=== PATIENT | female | born 1980 | race Two or more races ===

== ENCOUNTER 2016-05-31 09:08 | Emergency (ER) | payer OTHER ==
[2016-05-31 09:24] VITALS: BP 120/72; PULSE 104; TEMP 98.6; BMI 31.7
--- NOTE | 2016-05-31 09:56 | PDOC ---
History of Present Illness - General History Source: Patient Exam Limitations: No Limitations - History of Present Illness Initial Comments: 05/31/16 12:16 The patient is a 35 year old female, A0, 6 weeks , with no significant past medical history who presents to the ED with lower abdominal pain and vaginal bleeding. Patient reports lower abdominal pain that started this morning. Patient reports vaginal spotting since this morning that is less than her period. Patient notes that her LMP was 6 weeks ago. She denies taking any medication to alleviate the pain. She reports inserting medication from [place] in her vagina last night, but is unsure of the name, states this is an undesired . She denies fever, chills, nausea, vomiting, back pain, diarrhea and constipation. Patient denies dysuria, hematuria, hesitancy and urgency. <Yamini Perez - Last Filed: 05/31/16 12:21> <Ervin Fallon - Last Filed: 05/31/16 13:04> - General Chief Complaint: Vaginal Bleeding Stated Complaint: 6 WKS PREG, VAG BLEEDING Time Seen by Provider: 05/31/16 09:56 Past History <Yamini Perez - Last Filed: 05/31/16 12:21> - Past Medical History Other medical history: DENIES. - Psycho/Social/Smoking Cessation Hx Suicidal Ideation: No Smoking History: Never smoked <Ervin Fallon - Last Filed: 05/31/16 13:04> - Past Medical History Allergies/Adverse Reactions: Allergies Allergy/AdvReac Type Severity Reaction Status Date / Time No Known Allergies Allergy Verified 05/31/16 09:19 Home Medications: Ambulatory Orders NK [No Known Home Medication] 05/31/16 Review of Systems - Review of Systems Able to Perform ROS?: Yes Comments:: 05/31/16 12:17 CONSTITUTIONAL: No reported: Fever, Chills, Diaphoresis, Generalized Weakness, Malaise, Loss of Appetite HEENT: No reported: Rhinorrhea, Nasal Congestion, Throat Pain, Throat Swelling, Difficulty Swallowing, Mouth Swelling, Ear Pain, Eye Pain, Visual Changes CARDIOVASCULAR: No reported: Chest Pain, Syncope, Palpitations, Irregular Heart Rate, Lightheadedness, Peripheral Edema RESPIRATORY: No reported: Cough, Shortness of Breath, SOB with Exertion, Orthopnea, Wheezing , Stridor, Hemoptysis GASTROINTESTINAL: Reported: abdominal pain No reported: Abdominal Distension, Nausea, Vomiting, Diarrhea, Constipation, Melena, Hematochezia GENITOURINARY: Reported: vaginal bleeding No reported: Dysuria, Frequency, Urgency, Hesitancy, Flank Pain, Genital Pain MUSCULOSKELETAL: No reported: Myalgia, Arthralgia, Joint Swelling, Back pain, Neck Pain SKIN: No reported: Rash, Itching, Pallor HEMEATOLOGIC/IMMUNOLOGIC: No reported: Easy Bleeding, Easy Bruising, Lymphadenopathy, Frequent infections ENDOCRINE: No reported: Unexplained Weight Gain, Unexplained Weight Loss, Heat Intolerance , Cold Intolerance NEUROLOGIC: No reported: Headache, Focal Weakness, Paresthesias, Vertigo, Lightheadedness, Unsteady Gait, Seizure, Mental Status Changes, Incontinence PSYCHIATRIC: No reported: Anxiety, Depression <Yamini Perez - Last Filed: 05/31/16 12:21> *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 - Vital Signs Last Vital Signs Temp Pulse Resp BP Pulse Ox 98.6 F 104 H 19 120/72 99 05/31/16 09:19 05/31/16 09:19 05/31/16 09:19 05/31/16 09:19 05/31/16 09:19 - 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 Comments: 05/31/16 12:17 GENERAL: The patient is awake, alert, and fully oriented, Nontoxic - in no acute distress. HEAD: Normocephalic, atraumatic. EYES: extraocular movements intact, sclera anicteric, conjunctiva clear. ENT: Normal voice, Moist mucous membranes. NECK: Normal range of motion, supple LUNGS: Breath sounds equal, clear to auscultation bilaterally. No wheezes, no rhonchi, no rales. HEART: Regular rate and rhythm, without murmur, rub or gallop. ABDOMEN: +mild suprapubic abdominal tenderness. Soft, normoactive bowel sounds. No guarding, no rebound.No CVA tenderness EXTREMITIES: Normal range of motion, no edema. No clubbing or cyanosis. No cords , erythema, or tenderness. NEUROLOGICAL: No facial assymetry, Normal speech, PSYCH: Normal mood, normal affect. SKIN: Warm, Dry, normal turgor, PELVIC: +couple of yellow tablets in vaginal vault. No rashes or lesions, No CMT , cervical os closed, no vaginal bleeding, mild suprapubic tenderness <Yamini Perez - Last Filed: 05/31/16 12:21> - Vital Signs Last Vital Signs Temp Pulse Resp BP Pulse Ox 98.6 F 104 H 19 120/72 99 05/31/16 09:19 05/31/16 09:19 05/31/16 09:19 05/31/16 09:19 05/31/16 09:19 <VasylErvin cooper - Last Filed: 05/31/16 13:04> ED Treatment Course - LABORATORY CBC & Chemistry Diagram: 05/31/16 10:15 05/31/16 10:15 - ADDITIONAL ORDERS Additional order review: Laboratory Results 05/31/16 05/31/16 10:15 10:15 Sodium 138 Potassium 4.2 Chloride 105 Carbon Dioxide 24 Anion Gap 9 BUN 7 Creatinine 0.7 Creat Clearance w eGFR > 60 Random Glucose 89 Calcium 8.6 Total Bilirubin 0.4 AST 14 L ALT 22 Alkaline Phosphatase 70 Total Protein 7.4 Albumin 3.5 Beta HCG, Quant 93489.8 Blood Type O POSITIVE Antibody Screen Negative 05/31/16 10:15 RBC 3.64 MCV 93.8 MCHC 33.7 RDW 14.9 MPV 8.1 Neutrophils % 66.9 Lymphocytes % 23.0 Monocytes % 7.3 Eosinophils % 2.5 Basophils % 0.3 - RADIOLOGY Radiology Studies Ordered: 05/31/16 12:21 EXAM#:US/ <14WKS US with abdominal pain. Obstetrical ultrasound, transabdominal and transvaginal The uterus is gravid measuring 12.2 x 8.3 cm. An intrauterine gestation sac and pole is identified with an average sonographic gestational age of 13 weeks. heart rate is 165 bpm. The gestational sac is extending to the lower uterine segment. Uterine cervix is shortened measuring 2.8 cm in sagittal length without gross funneling. Tiny echogenic density in proximal portion of the cervix suggestive of prior cerclage sutures. Correlate clinically. Right ovary measures 2.3 x 1 cm and appears unremarkable with normal vascular flow. Left ovary was not visualized IMPRESSION: Single live intrauterine with estimated gestational age of 13 weeks. Shortened uterine cervix /incompetent cervix measuring 2.8 cm in sagittal without gross funneling . Lower limits of normal should be 3 cm. Close follow-up is recommended for further evaluation Reported By: Brandy Wynne MD 05/31/[address] Fallon <Yamini Perez - Last Filed: 05/31/16 12:21> - LABORATORY CBC & Chemistry Diagram: 05/31/16 10:15 05/31/16 10:15 <Ervin Fallon - Last Filed: 05/31/16 13:04> Medical Decision Making - Medical Decision Making 05/31/16 11:24 35y F at approx 6 weeks gestation presents with vag bleeding/cramping since this morning. Pt states this is an undesired - she took some kind of med that she got from the DR - (doesnt know name) last night. will ck beta, labs and US will refer to roller shop supervisor for elective termination A portion of this note was documented by scribe services under my direction. I have reviewed the details of the note, within reason, and agree with the documentation with the following case summary and management plan written by me 05/31/16 12:53 The patient's blood work was reviewed it with unremarkable The patient's blood type is O+, rhogam not necessary The patient's ultrasound reveals an IUP with estimated gestation of 13 weeks with a heart rate of 165, there is signs of cervical shortening. Will refer the patient to LEATHER PIECE INSPECTOR. return precautions wree discussed I discussed the physical exam findings, ancillary test results and final diagnoses with the patient. I answered all of the patient's questions. The patient was satisfied with the care received and felt comfortable with the discharge plan and treatment plan. The patient will call their primary care physician within 24 hours to arrange follow-up and will return to the Emergency Department with any new, persistent or worsening symptoms. <Ervin Fallon - Last Filed: 05/31/16 13:04> *DC/Admit/Observation/Transfer - Attestations Scribe Attestion: 05/31/16 12:18 Documentation prepared by SUNITHA Vidal, acting as medical equipment repair technician for Ervin Fallon MD. <Yamini Perez - Last Filed: 05/31/16 12:21> - Discharge Dispostion Admit: No <Ervin Fallon - Last Filed: 05/31/16 13:04> Diagnosis at time of Disposition: Threatened in first trimester - Discharge Dispostion Disposition: HOME Condition at time of disposition: Stable - Referrals Referrals: Ling Winston MD [Staff Physician] - - Patient Instructions Printed Discharge Instructions: DI for Threatened Additional Instructions: Vuelva al departamento de urgencias inmediatamente con CUALQUIER nuevo, persistente o empeorando los sntomas incluyendo el empeoramiento del dolor, el aumento de la cantidad de sangrado, fiebres u otras preocupaciones. Usted DEBE llamar y seguir con el obstetra para mamadou evaluacin adicional de kim sntomas. Los resultados fueron discutidos con usted. Por favor, asegrese de que leonard mdico revise los resultados de leonard evaluacin de emergencia. Return to the emergency department immediately with ANY new, persistent or worsening symptoms including worsening pain, increased amount of bleeding, fevers or other concerns. You MUST call and follow up with teacher adventure education for for further evaluation of your symptoms. Results were discussed with you. Please make sure your doctor reviews the results of your emergency evaluation. Print Language: WOLOF
[2016-05-31 10:27] LABS: BASOPHIL 0.3 % (0-2.0); EOSINOPHIL 2.5 % (0-4.5); MCH 31.6 pg (25.7-33.7); MCHC 33.7 g/dl (32.0-36.0); MEAN CELL VOLUME 93.8 fl (80-96); MEAN PLT VOLUME 8.1 fl (7.5-11.1); NEUTROPHILS 66.9 % (42.8-82.8); PLATELET COUNT 393 K/MM3 (134-434); RDW 14.9 % (11.6-15.6); WHITE BLOOD COUNT 8.2 K/mm3 (4.0-10.0)
[2016-05-31 10:52] LABS: ALBUMIN 3.5 g/dl (3.4-5.0); ANION GAP 9 (8-16); BILIRUBIN,TOTAL 0.4 mg/dL (0.2-1.0); CALCIUM 8.6 mg/dL (8.5-10.1); CO2 24 mmol/L (21-32); CREATININE 0.7 mg/dL (0.55-1.02); GLUCOSE,RANDOM 89 mg/dL (74-106); SGOT/AST 14 U/L (15-37); SGPT/ALT 22 U/L (12-78); TOT PROT 7.4 g/dl (6.4-8.2)
[2016-05-31 10:57] LABS: ALK PHOS 70 U/L (45-117)
[2016-05-31] MEDS ORDERED: ACETAMINOPHEN 325 MG TABLET (FP) PO ONE (12:15)
[2016-05-31] MEDS ORDERED: ACETAMINOPHEN 325 MG TABLET (FP) ONE (12:26)
== END 2016-05-31 13:20 | disposition home or self-care (01) ==
LOC: JER 09:08
DX: O20.0 Threatened abortion (principal); Z3A.13 13 weeks gestation of pregnancy
CPT/HCPCS: 36415; 76801-TC; 80053; 84702; 85025; 86850; 86900; 86901; 99283-25

== ENCOUNTER 2016-11-18 03:45 | Inpatient (IN) | payer OTHER ==
[2016-11-18] MEDS: DEXTROSE 5%-LACTATED RINGERS 1,000 ML IV SCH ×2 (05:00→21:00)
[2016-11-18] MEDS ORDERED: AMPICILLIN 2 GM/100 ML BAG (PRE-DOCKED) IVPB ONE (05:00)
[2016-11-18 05:16] LABS: BASOPHIL 0.8 % (0-2.0); EOSINOPHIL 1.2 % (0-4.5); MCH 31.6 pg (25.7-33.7); MCHC 33.3 g/dl (32.0-36.0); MEAN CELL VOLUME 94.7 fl (80-96); MEAN PLT VOLUME 8.6 fl (7.5-11.1); NEUTROPHILS 70.2 % (42.8-82.8); PLATELET COUNT 346 K/MM3 (134-434); RDW 14.7 % (11.6-15.6); WHITE BLOOD COUNT 9.2 K/mm3 (4.0-10.0)
[2016-11-18 05:30] LABS: INR 1.02 (0.82-1.09); PROTHROMBIN TIME (PATIENT) 11.2 SEC (9.98-11.88)
[2016-11-18 05:32] LABS: ACTIVATED PTT 28.3 SECONDS (26.9-34.4)
[2016-11-18 05:36] LABS: ANION GAP 8 (8-16); CALCIUM 8.3 mg/dL (8.5-10.1); CO2 23 mmol/L (21-32); CREATININE 0.5 mg/dL (0.55-1.02); GLUCOSE,RANDOM 112 mg/dL (74-106)
[2016-11-18 05:49] VITALS: BMI 33.4
[2016-11-18 06:11] LABS: HIV 1 & 2 AB NEGATIVE; HIV 1 AGp24 NEGATIVE
[2016-11-18] MEDS: AMPICILLIN (PRE-DOCKED) 1 GM/100 ML BAG IVPB SCH ×4 (09:00→21:00)
--- NOTE | 2016-11-18 09:19 | PN ---
Progress Note (short form) - Note Progress Note: cx closed, non effaced , vx -3 mi, fhr cat 1. no contraction, cervidil rba discussed ,via chair inspector and leveler, cervidil inserted 910 am
[2016-11-18] MEDS ORDERED: DINOPROSTONE 10 MG VAGINAL SUPPOSITORY VG ONE (09:29)
--- NOTE | 2016-11-18 11:32 | HP ---
Past Medical History - Primary Care Physician PCP:: Héctor Domínguez - Admission Chief Complaint: 37 week, PROM, ama History of Present Illness: 36 yo f edc by sono 12/10/16 with SRPOM since 3 am , no pain, no bleeding , no fever, clear fluid, cx clp, vx -3 mr, serafin positve, fhr cat 1 no contraction History Source: Patient Limitations to Obtaining History: Language Barrier - Past Medical History ...: 4 ...Para: 3 ...Term: 3 ...: 0 ...Spon : 0 ...Induced : 0 ...Multiple Gestation: 0 ...LMP: 03/04/16 ... Weeks Gestation by Dates: 37.0 ...EDC by Dates: 12/09/16 ...EDC by Sono: 12/10/16 Additional OB History: 3 , no complication - Past Surgical History Hx Myomectomy: No Hx Transabdominal Cerclage: No Additional Surgical History: exploratory lap as child 3m old - Smoking History Smoking history: Never smoked Have you smoked in the past 12 months: No - Alcohol/Substance Use Hx Alcohol Use: No - Social History History of Recent Travel: No Home Medications - Allergies Allergies/Adverse Reactions: Allergies Allergy/AdvReac Type Severity Reaction Status Date / Time No Known Allergies Allergy Verified 11/18/16 04:58 - Home Medications Home Medications: Ambulatory Orders Vitamins (Sjr) - 1 tab PO DAILY 10/07/16 Review of Systems - Review of Systems Constitutional: reports: No Symptoms Eyes: reports: No Symptoms HENT: reports: No Symptoms Neck: reports: No Symptoms Cardiovascular: reports: No Symptoms Respiratory: reports: No Symptoms Gastrointestinal: reports: No Symptoms Genitourinary: reports: No Symptoms Breasts: reports: No Symptoms Reported Musculoskeletal: reports: No Symptoms Integumentary: reports: No Symptoms Neurological: reports: No Symptoms Endocrine: reports: No Symptoms Hematology/Lymphatic: reports: No Symptoms Psychiatric: reports: No Symptoms 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 - Maternity Vital Signs: Vital Signs Temperature 97.9 F 11/18/16 10:00 Pulse Rate 77 11/18/16 11:00 Respiratory Rate 20 11/18/16 11:00 Blood Pressure 98/55 11/18/16 11:00 O2 Sat by Pulse Oximetry (%) Constitutional: Yes: Well Nourished, No Distress, Calm Eyes: Yes: WNL, Conjunctiva Clear, EOM Intact HENT: Yes: WNL, Atraumatic, Normocephalic Neck: Yes: WNL, Supple, Trachea Midline Cardiovascular: Yes: WNL, Regular Rate and Rhythm Breast(s): Yes: WNL - Abdominal Exam/OB Fundal Height: 36 Number of Fetuses: Single Presentation: Vertex Contractions: No Intensity: Unaware Monitor Mode: External Heart Rate Location: [facility] Category: I Accelerations: Non-Uniform Decelerations: None - Vaginal Exam/OB Vaginal Bleediing: No Speculum Exam: Yes Dilatation (cm): closed Effacement (%): 0 Amniotic Membrane Status: Ruptured Nitrazine Test: Positive Amniotic Fluid: Yes: Clear Presentation: Vertex/Position Station: -3 - 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 Musculoskeletal: Yes: WNL Extremities: Yes: WNL Edema: Yes Edema: LLE: Trace, RLE: Trace Deep Tendon Reflex Grade: Normal +2 Psychiatric: Yes: WNL - Labs Lab Results: CBC, BMP 11/18/16 05:05 11/18/16 05:05 Hemorrhage Risk Assessment - Risk Factors Risk Score: 1 Risk Level: Medium Risk Problem List - Problems (1) with 37 or more completed weeks gestation Code(s): PFO9637 - (2) PROM (premature rupture of membranes) Code(s): O42.90 - LONG ROM, 7TH0 BETW RUPT & ONST LABR, UNSP WEEKS OF GEST Qualifiers: PROM onset of labor timing: onset of labor within 24 hours of rupture PROM gestational age: -third trimester Qualified Code(s): O42.013 - premature rupture of membranes, onset of labor within 24 hours of rupture, third trimester Assessment/Plan plan cervidil rba discussed via reset merchandiser, agreed ,ulternative, expectant management discussed iv amp, GBS unknown
--- NOTE | 2016-11-18 19:39 | PN ---
Progress Note (short form) - Note Progress Note: cervidil fell out at 7 pm, cx 2 cm 70 vx -2 mr , fhr cat 1, irregular contraction . advised pitocin , rba explained Problem List - Problems (1) with 37 or more completed weeks gestation Code(s): KRS9691 - (2) PROM (premature rupture of membranes) Code(s): O42.90 - LONG ROM, 7TH0 BETW RUPT & ONST LABR, UNSP WEEKS OF GEST Qualifiers: PROM onset of labor timing: onset of labor within 24 hours of rupture PROM gestational age: -third trimester Qualified Code(s): O42.013 - premature rupture of membranes, onset of labor within 24 hours of rupture, third trimester
[2016-11-18] MEDS: OXYTOCIN 15 UNITS/ LR 250 ML 250 ML IVPB SCH (19:45)
[2016-11-18] MEDS ORDERED: PROMETHAZINE HCL 25 MG/1 ML VIAL IVPUSH ONE (19:47)
[2016-11-18] MEDS ORDERED: BUTORPHANOL TARTRATE 1 MG/ML VIAL IVPUSH PRN (19:47)
[2016-11-19] MEDS: AMPICILLIN (PRE-DOCKED) 1 GM/100 ML BAG IVPB SCH ×2 (01:00→08:29)
[2016-11-19] MEDS ORDERED: BENZOCAINE 20% 57 GM BOTTLE TP PRN (03:34)
[2016-11-19] MEDS ORDERED: METHYLERGONOVINE MALEATE 0.2 MG/1 ML AMP IM PRN (03:34)
[2016-11-19] MEDS ORDERED: ACETAMINOPHEN 325 MG TABLET (FP) PO PRN (03:34)
[2016-11-19] MEDS ORDERED: IBUPROFEN 600 MG TABLET (FP) PO PRN (03:34)
[2016-11-19] MEDS ORDERED: BISACODYL 10 MG SUPP.RECT RC PRN (03:34)
[2016-11-19] MEDS ORDERED: WITCH HAZEL 50% (TUCKS) 40 PAD/JAR PAD TP PRN (03:34)
[2016-11-19] MEDS ORDERED: oxyCODONE HCL 5 MG TABLET PO PRN (03:34)
[2016-11-19] MEDS ORDERED: BENZOCAINE 28 GM HEMORRHOIDAL OINTMENT TP PRN (03:34)
[2016-11-19] MEDS ORDERED: D5W-LR W/ 20 UNITS OXYTOCIN 1,000 ML IV SCH (03:45)
[2016-11-19 03:55] LABS: ARTERIAL BLD GAS O2 SATURATION 36.4 % (90-98.9); ARTERIAL BLOOD GAS BASE EXCESS -0.2 meq/l (-2-2); ARTERIAL BLOOD GAS HCO3 27.1 meq/L (22-26); ARTERIAL BLOOD GAS pH 7.29 (7.35-7.45)
[2016-11-19 03:56] LABS: ARTERIAL BLOOD GAS PO2 20.3 mmHg (80-100)
[2016-11-19 03:59] LABS: VENOUS BLOOD GAS HCO3 24.9 meq/L (19-25); VENOUS PH 7.38 (7.32-7.42)
[2016-11-19] MEDS: FERROUS SO4 325 MG TABLET (FP) PO SCH ×2 (09:49→22:04)
[2016-11-19] MEDS: PRENATAL VITAMINS W/ FOLIC ACID TABLET (FP) PO SCH (09:49)
[2016-11-19] MEDS ORDERED: DIPHTH,PERTUSS(ACELL),TET 0.5 ML DISP.SYRIN IM ONE (10:00)
[2016-11-20 08:05] LABS: BASOPHIL 0.5 % (0-2.0); MCH 31.7 pg (25.7-33.7); MCHC 33.3 g/dl (32.0-36.0); MEAN CELL VOLUME 95.3 fl (80-96); MEAN PLT VOLUME 8.6 fl (7.5-11.1); PLATELET COUNT 330 K/MM3 (134-434); RDW 14.5 % (11.6-15.6); WHITE BLOOD COUNT 10.7 K/mm3 (4.0-10.0)
--- NOTE | 2016-11-20 08:49 | PN ---
Post Progress Note - Subjective Subjective: 36 yo Para 4, status post normal vaginal delivery, seen and evaluated. Doing well, no complaints. Post Day: 1 Type of Delivery: Vital Signs: Vital Signs Temperature 97.7 F 11/20/16 08:37 Pulse Rate 59 L 11/20/16 08:37 Respiratory Rate 20 11/20/16 08:37 Blood Pressure 129/80 11/20/16 08:37 O2 Sat by Pulse Oximetry (%) 100 11/19/16 04:25 Breast Exam: Yes: Soft Uterus: Yes: Fundus Firm Abdomen/GI: Yes: Abdomen soft, Tolerating PO Lochia: Yes: Rubra Lochia, amount: Moderate Extremities: Yes: Calves non-tender Activity: Ambulating - Labs Labs: CBC WBC 10.7 K/mm3 (4.0-10.0) H 11/20/16 06:00 RBC 3.36 M/mm3 (3.60-5.2) L 11/20/16 06:00 Hgb 10.7 GM/dL (10.7-15.3) D 11/20/16 06:00 Hct 32.0 % (32.4-45.2) L 11/20/16 06:00 MCV 95.3 fl (80-96) 11/20/16 06:00 MCH 31.7 pg (25.7-33.7) 11/20/16 06:00 MCHC 33.3 g/dl (32.0-36.0) 11/20/16 06:00 RDW 14.5 % (11.6-15.6) 11/20/16 06:00 Plt Count 330 K/MM3 (134-434) 11/20/16 06:00 MPV 8.6 fl (7.5-11.1) 11/20/16 06:00 Neutrophils % 66.0 % (42.8-82.8) 11/20/16 06:00 Lymphocytes % 24.2 % (8-40) 11/20/16 06:00 Monocytes % 7.3 % (3.8-10.2) 11/20/16 06:00 Eosinophils % 2.0 % (0-4.5) 11/20/16 06:00 Basophils % 0.5 % (0-2.0) 11/20/16 06:00 Problem List - Problems (1) Status post normal vaginal delivery Code(s): MAH9303 - Assessment/Plan Status post normal vaginal delivery Stable Continue routine care
[2016-11-20] MEDS: PRENATAL VITAMINS W/ FOLIC ACID TABLET (FP) PO SCH (09:08)
[2016-11-20] MEDS: FERROUS SO4 325 MG TABLET (FP) PO SCH ×2 (09:08→21:59)
[2016-11-20] MEDS: OXYTOCIN 15 UNITS/ LR 250 ML 250 ML IVPB SCH (21:56)
[2016-11-20] MEDS ORDERED: SENNOSIDES/DOCUSATE COMBO (SENNA PLUS) TABLET (UD) PO PRN (22:00)
[2016-11-21] MEDS: FERROUS SO4 325 MG TABLET (FP) PO SCH (09:07)
[2016-11-21] MEDS: PRENATAL VITAMINS W/ FOLIC ACID TABLET (FP) PO SCH (09:07)
[2016-11-21 09:28] VITALS: BP 117/61; PULSE 60; TEMP 98.6
--- NOTE | 2016-11-21 22:54 | DS ---
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-POLICE SHIFT COMMANDER Vital Signs: Vital Signs Temperature 98.6 F 11/21/16 09:26 Pulse Rate 60 11/21/16 09:26 Respiratory Rate 20 11/21/16 09:26 Blood Pressure 117/61 11/21/16 09:26 O2 Sat by Pulse Oximetry (%) 100 11/19/16 04:25 Constitutional: Yes: Well Nourished, No Distress, Calm Eyes: Yes: WNL, Conjunctiva Clear, EOM Intact HENT: Yes: WNL, Atraumatic, Normocephalic Neck: Yes: WNL, Supple, Trachea Midline Cardiovascular: Yes: WNL, Regular Rate and Rhythm Respiratory: Yes: WNL, Regular, CTA Bilaterally Gastrointestinal: Yes: WNL ...Rectal Exam: Yes: WNL Renal/: Yes: WNL ....Post : Yes: Uterus firm, Uterus non-tender, Slight lochia rubra Breast(s): Yes: WNL Musculoskeletal: Yes: WNL Extremities: Yes: WNL Edema: No Integumentary: Yes: WNL Neurological: Yes: WNL, Alert, Oriented ...Motor Strength: WNL Psychiatric: Yes: WNL, Alert, Oriented Labs: CBC, BMP 11/20/16 06:00 11/18/16 05:05 Delivery - Delivery Vaginal Delivery: Spontaneous (no complication) Type of Anesthesia: None Episiotomy/Laceration: None EBL (cc): 300 Delivery, Single - Stages of Labor Date 1st Stage Initiatied: 11/18/16 Time 1st Stage Initiated: 21:00 Date 2nd Stage Initiated: 11/19/16 Time 2nd Stage Initiated: 03:20 Date of Delivery: 11/19/16 Time of Delivery: 03:27 Time Placenta Delivered: 03:35 Placenta: Yes: Spontaneous (no complication) - Condition of 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
== END 2016-11-21 12:30 | disposition home or self-care (01) | DRG 560 ==
LOC: JLDR 03:45 → J3W 11-19 04:49
PROVIDERS: ADMIT Obstetrics & Gynecology; ATTEND Obstetrics & Gynecology
PROC: 3E0P7GC Introduction of Other Therapeutic Substance into Female Reproductive, Via Natural or Artificial Opening (ICD-10-PCS; 2016-11-18)
PROC: 10E0XZZ Delivery of Products of Conception, External Approach (ICD-10-PCS; principal; 2016-11-19)
DX: O42.92 Full-term premature rupture of membranes, unspecified as to length of time between rupture and onset of labor (principal); Z3A.37 37 weeks gestation of pregnancy; Z37.0 Single live birth
CPT/HCPCS: 36415; 36600; 59409; 80048; 82803; 85025; 85610; 85730; 86593; 86850; 86900; 86901; 87389; 90715

== ENCOUNTER 2018-06-07 18:27 | Emergency (ER) | payer OTHER ==
[2018-06-07 18:38] VITALS: BP 147/83; PULSE 88; BMI 27.4
[2018-06-07] MEDS ORDERED: ACETAMINOPHEN 325 MG TABLET (FP) PO ONE (18:54)
[2018-06-07] MEDS ORDERED: ACETAMINOPHEN 325 MG TABLET (FP) ONE (19:00)
--- NOTE | 2018-06-07 19:17 | PDOC ---
History of Present Illness - General Chief Complaint: Eye Problem Stated Complaint: R EYE PAIN Time Seen by Provider: 06/07/18 18:42 - History of Present Illness Initial Comments: The pt is a 37F w/ no reported PMH who presents for evaluation s/p fall in the shower and injury to her R eye at approximately 1600 today. She reports blurry vision in the R eye and swelling. Denies LOC. She has not taken anything for the pain. Denies any PMH, meds, or allergies She denies recent illness, fevers/chill, chest pain, SOB, abdominal pain, N/V/C/ D, or changes in sensation/strength 06/07/18 19:14 Past History - Past Medical History Allergies/Adverse Reactions: Allergies Allergy/AdvReac Type Severity Reaction Status Date / Time No Known Allergies Allergy Verified 06/07/18 18:34 Home Medications: Ambulatory Orders NK [No Known Home Medication] 06/07/18 Asthma: No Cancer: No Cardiac Disorders: No COPD: No Diabetes: No HTN: No Seizures: No Thyroid Disease: No - Suicide/Smoking/Psychosocial Hx Smoking History: Never smoked Have you smoked in the past 12 months: No Hx Alcohol Use: No Drug/Substance Use Hx: No Hx Substance Use Treatment: No Review of Systems - Review of Systems Able to Perform ROS?: Yes Comments:: GENERAL/CONSTITUTIONAL: No fever or chills. No weakness HEAD, EYES, EARS, NOSE AND THROAT: No ear pain or discharge. No sore throat CARDIOVASCULAR: No chest pain or shortness of breath RESPIRATORY: Denies cough, hemoptysis GASTROINTESTINAL: No nausea, vomiting, diarrhea or constipation GENITOURINARY: No dysuria, frequency, or change in urination MUSCULOSKELETAL: No joint or muscle swelling or pain. No neck or back pain SKIN: No rash NEUROLOGIC: No headache, vertigo, loss of consciousness, or change in strength/ sensation ENDOCRINE: No increased thirst. No abnormal weight change HEMATOLOGIC/LYMPHATIC: No anemia, easy bleeding, or history of blood clots ALLERGIC/IMMUNOLOGIC: No hives or skin allergy 06/07/18 19:32 *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 - Vital Signs Last Vital Signs Temp Pulse Resp BP Pulse Ox 88 22 H 147/83 99 06/07/18 18:35 06/07/18 18:35 06/07/18 18:35 06/07/18 18:35 - 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 Comments: GENERAL: Awake, alert, and fully oriented, in no acute distress HEAD: No signs of trauma, normocephalic, atraumatic EYES: R eye periorbial swelling, ecchymosis, conjuntival injection; OD 20/50; OS 20/30; No bony crepitus palpated ENT: Hearing grossly normal, nares patent, oropharynx clear without exudates. Moist mucosa LUNGS: No distress, speaks full sentences, clear to auscultation bilaterally HEART: Regular rate and rhythm, normal S1 and S2, no murmurs appreciated, peripheral pulses normal and equal bilaterally ABDOMEN: Soft, nontender, normoactive bowel sounds. No guarding, no rebound. No masses EXTREMITIES : Normal inspection, Normal range of motion, no edema. No clubbing or cyanosis NEUROLOGICAL: Cranial nerves II through XII grossly intact. Normal speech, normal gait, no focal sensorimotor deficits SKIN: R periorbital edema/ecchymosis; otherwise warm/dry 06/07/18 19:33 Moderate Sedation - Procedure Monitoring Vital Signs: Procedure Monitoring Vital Signs Temperature Pulse Rate 88 06/07/18 18:35 Respiratory Rate 22 H 06/07/18 18:35 Blood Pressure 147/83 06/07/18 18:35 O2 Sat by Pulse Oximetry (%) 99 06/07/18 18:35 ED Treatment Course - ADDITIONAL ORDERS Additional order review: Laboratory Results 06/07/18 19:00 Urine HCG, Qual Negative - RADIOLOGY Radiology Studies Ordered: Category Date Time Status FACIAL BONES CT W/O CONTRAST [CT] Stat CT Scan 06/07/18 18:[address] WITHOUT CONTRAST [CT] Stat CT Scan 06/07/18 18:47 Ordered - Medications Given in the ED: ED Medications Discontinued Medications Generic Name Dose Route Start Last Admin Trade Name Freq PRN Reason Stop Dose Admin Acetaminophen 975 mg 06/07/18 18:54 06/07/18 18:59 Tylenol - PO 06/07/18 18:55 975 mg ONCE ONE Administration Medical Decision Making - Medical Decision Making The patient is a 37F w/ no reported history who presents for evaluation of R eye pain s/p fall in shower at [address] head and facial bones Upreg 06/07/18 19:17 Upreg neg 06/07/18 19:17 No corneal abrasion seen w/ Fluorescein stain 06/07/18 20:14 CT sig for preorbital soft tissue swelling w/o evidence of swelling or globe rupture Plan for D/C w/ ophtho and PCP f/u Discharge instructions and return precautions given Patient in agreement and verbalized understanding Dispo: home 06/07/18 20:17 *DC/Admit/Observation/Transfer Diagnosis at time of Disposition: Right eye trauma Qualifiers: Encounter type: initial encounter Qualified Code(s): S05.91XA - Unspecified injury of right eye and orbit, initial encounter - Discharge Dispostion Disposition: HOME Condition at time of disposition: Stable Decision to Admit order: No - Referrals Referrals: Milton Padron MD [Staff Physician] - - Patient Instructions Printed Discharge Instructions: DI for Eye Contusion Additional Instructions: You were seen in the Emergency Department tonight for injury to your right eye. You CT scan was negative for bone fracture. You do not have a corneal abrasion. Read the handout provided at discharge follow up with ophthalmology and your primary care provider. Return to the Emergency Department if you develop worsening vision, pain, or any new/concerning symptoms. Esta noche se lo juan en el Departamento de Emergencias por lesiones en el bulmaro derecho. Leonard tomografa computarizada fue negativa para fractura de hueso. No tienes mamadou abrasin corneal. Aliyn el folleto provisto al momento del zayra hospitalaria con oftalmologa y leonard proveedor de atencin primaria. Regrese al Departamento de Emergencias si presenta empeoramiento de la visin, dolor o cualquier sntoma nuevo o relacionado. Print Language: HEBREW - Post Discharge Activity Forms/Work/School Notes: Back to Work
--- NOTE | 2018-06-07 19:32 | PDOC ---
Attending Attestation - HPI HPI: This patient is a 37 year old female with no significant PMHx, who presents s/p slip and fell in bathtub injuring right eye. She now complains of right eye pain and swelling. She denies any loss of consciousness or amnesia-like symptoms. Denies any blurry or double vision. 06/07/18 20:04 - Physicial Exam PE: GENERAL: The patient is in no acute distress. HEAD: Normal with no signs of trauma. EYES: PERRLA, EOMI, sclera anicteric, Right periorbital and eyelid swelling, conjunctival injection without blood in anterior chamber. Pupils are reactive. Able to move eyeball with pain. Tearing. No diplopia. ENT: Ears normal, nares patent.Moist mucous membranes. NECK: No c-spine tenderness.Normal range of motion, supple without lymphadenopathy, JVD, or masses. LUNGS: Breath sounds equal, clear to auscultation bilaterally. No wheezes, and no crackles. HEART:Regular rate and rhythm, normal S1 and S2 without murmur, rub or gallop. ABDOMEN: Soft, nontender, normoactive bowel sounds. No guarding, no rebound. EXTREMITIES: Normal range of motion, no edema. No clubbing or cyanosis. No erythema, or tenderness. NEUROLOGICAL: Ambulatory. Cranial nerves II through XII grossly intact. Normal speech. No focal neurological deficits. MUSCULOSKELETAL: Back nontender to palpation, no CVA tenderness SKIN: Warm, Dry, normal turgor, no rashes or lesions noted. <Monique Robles - Last Filed: 06/07/18 20:16> - Resident Resident Name: Pino Celestin - ED Attending Attestation I have performed the following: I have examined & evaluated the patient, The case was reviewed & discussed with the resident, I agree w/resident's findings & plan, Exceptions are as noted - Medical Decision Making 06/07/18 20:32 CT demonstrates There is right preseptal periorbital soft tissue swelling. The right ocular globe is intact. There are no intraocular or retro-or hemorrhages. There are no intracranial hemorrhages or brain parenchymal contusion injuries; no fractures seen in the calvarial, facial or skull base bones imaged on the current exam. There are no extra-axial fluid collections or evidence of an intra-axial mass lesion. The cerebral sulci and ventricles are normal in size. There is no clear evidence of chronic ischemic demyelination. Cerebral clark/white matter differentiation is preserved, without clear evidence of an acute ischemic lesion at this time. Orbital and petrous structures, cerebellopontine angles, and posterior fossa appear unremarkable. The paranasal and mastoid sinuses are clear. IMPRESSION: Right preseptal periorbital soft tissue swelling. The study is otherwise unremarkable. No calvarial, facial or skull base fractures imaged on the current exam. No intracranial hemorrhages or brain parenchymal contusion injuries. Visual Acquity (R) 20/50 (L) 20/30 EOMI No diploplia PERRLA No corneal abrasions Will discharge to home Follow up with PMD/Ophtho Ice to the Right eye <Jacinda Rivas - Last Filed: 06/07/18 20:38>
[2018-06-07] MEDS ORDERED: FLUORESCEIN NA 1 EA STRIP OD ONE (20:00)
[2018-06-07] MEDS ORDERED: FLUORESCEIN NA 1 EA STRIP ONE ×2 (20:02→20:48)
== END 2018-06-07 20:59 | disposition home or self-care (01) ==
LOC: JER 18:27
DX: S05.11XA Contusion of eyeball and orbital tissues, right eye, initial encounter (principal); W18.2XXA Fall in (into) shower or empty bathtub, initial encounter; Y93.E1 Activity, personal bathing and showering; Y92.031 Bathroom in apartment as the place of occurrence of the external cause; Y99.8 Other external cause status
CPT/HCPCS: 70450-TC; 70486-TC; 84703; 99282-25

== ENCOUNTER 2021-11-03 20:36 | Emergency (ER) | payer OTHER ==
[2021-11-03 21:07] VITALS: BP 158/94; PULSE 96; TEMP 99.1; BMI 27.5
== END 2021-11-03 22:18 | disposition home or self-care (01) ==
LOC: FER 20:36
DX: S61.501A Unspecified open wound of right wrist, initial encounter (principal)
CPT/HCPCS: 99283-25